=== PATIENT | male | born 1950 | race Caucasian/White ===

== ENCOUNTER 2024-05-04 06:16 | Day surgery (SDC) | payer MEDICARE, SELFPAY ==
--- NOTE | 2024-05-03 14:37 | PTCARENOTE ---
Kenia @ Dr. Gandhi office attempting to obtain preadmission testing results from PCP. Patients 2022 ECG and PCP office note reviewed by Dr. Dickinson. Patient may proceed with surgery if stable-Kenia @ Dr. Gandhi office notified.
[2024-05-04] VITALS (9 sets, daily range): BP systolic 124–163; BP diastolic 73–122; BMI 27.3
[2024-05-04] MEDS: TYLENOL 1000 MG PO (07:20)
[2024-05-04] MEDS: NORMOSOL-R/PLASMALYTE-A 1000 IV (07:20)
[2024-05-04] MEDS: CELEBREX 200 MG PO (07:20)
[2024-05-04 07:43] LABS: Hematocrit 48.4 % (39.0-52.0); Hemoglobin 16.8 g/dL (13.0-18.0); Mean Corp Hgb Conc. 34.7 g/dL (33.0-37.0); Mean Corpuscular Hgb 30.9 pg (27.0-31.0); Mean Corpuscular Volume 89.1 fL (80.0-94.0); Mean Platelet Volume 10.4 fL (7.4-10.4); Platelet Count 174 10^3/uL (130-400); Red Blood Cell Count 5.43 10^6/uL (4.70-6.10); Red Cell Dist. Width 13.6 % (11.5-14.5); White Blood Cell Count 4.9 10^3/uL (4.8-10.8)
[2024-05-04 07:49] LABS: Blood Urea Nitrogen 23 mg/dl (9-20); Calcium 10.1 mg/dl (8.4-10.2); Carbon Dioxide 23 mmol/L (22-30); Chloride 108 mmol/L (98-107); Estimated Creatinine Clearance 77 ml/min; Glucose 104 mg/dl (70-99); Potassium 4.5 mmol/L (3.5-5.1); Sodium 140 mmol/L (135-145); eGFR > 60.00
== END 2024-05-04 11:50 | disposition home or self-care (01) ==
LOC: SDS 06:16
PROVIDERS: ATTENDING PHYSICIAN Orthopaedic Surgery Hand Surgery
DX: M75.101 Unspecified rotator cuff tear or rupture of right shoulder, not specified as traumatic (principal); M75.41 Impingement syndrome of right shoulder; M19.011 Primary osteoarthritis, right shoulder
CPT/HCPCS: 29827; 29826; 80048; 85027; C1713